=== PATIENT | female | born 2000 | race Caucasian/White ===

== ENCOUNTER 2023-07-13 18:42 | Emergency (ER) | payer OTHER ==
[2023-07-13 19:04] VITALS: BP 99/59; PULSE 65; RESP 16; TEMP 97.8; BMI 23.8
[2023-07-13] MEDS ORDERED: KETOROLAC TROMETHAMINE 15 MG/ML VIAL IM ONE (19:51)
[2023-07-13] MEDS ORDERED: KETOROLAC TROMETHAMINE 30 MG/1 ML VIAL ONE (20:03)
[2023-07-13 20:28] LABS: URINE APPEARANCE CLEAR; URINE BILIRUBIN NEGATIVE (NEGATIVE); URINE COLOR YELLOW; URINE GLUCOSE (UA) NEGATIVE (NEGATIVE); URINE KETONE NEGATIVE (NEGATIVE); URINE LEUK ESTERASE NEGATIVE (NEGATIVE); URINE NITRITE NEGATIVE (NEGATIVE); URINE PROTEIN NEGATIVE (NEGATIVE); URINE UROBILINOGEN 0.2 mg/dL (0.2-1.0)
[2023-07-13 20:30] LABS: HCG,QUALITATIVE URINE Negative
== END 2023-07-13 21:22 | disposition home or self-care (01) ==
LOC: JERFT 18:42 → JER 18:42 → JERFT 21:22
PROC: 3E0233Z Introduction of Anti-inflammatory into Muscle, Percutaneous Approach (ICD-10-PCS; principal; 2023-07-13)
DX: R51.9 Headache, unspecified (principal); H53.71 Glare sensitivity
CPT/HCPCS: 81003; 84703; 99284-25

== ENCOUNTER 2024-02-12 10:16 | Emergency (ER) | payer OTHER ==
[2024-02-12 10:22] VITALS: BP 99/58; PULSE 57; RESP 20; TEMP 98.3; BMI 29.2
[2024-02-12] MEDS ORDERED: ACETAMINOPHEN INJECTION 100 ML IVPB ONE (10:49)
[2024-02-12] MEDS ORDERED: METOCLOPRAMIDE HCL INJECTION 10 MG/2 ML VIAL ONE (10:49)
[2024-02-12] MEDS: ACETAMINOPHEN 1000 MG/100 ML BAG IVPB ONE (11:11)
[2024-02-12] MEDS: SODIUM CHLORIDE 0.9% 1000 ML INFUS.BAG IV ONE (11:11)
[2024-02-12] MEDS: METOCLOPRAMIDE HCL INJECTION 10 MG/2 ML VIAL IVPB ONE (11:11)
[2024-02-12] MEDS ORDERED: KETOROLAC TROMETHAMINE 15 MG/ML VIAL ONE ×2 (12:14→12:17)
[2024-02-12] MEDS: KETOROLAC TROMETHAMINE 30 MG/1 ML VIAL IVPUSH ONE (12:25)
== END 2024-02-12 13:01 | disposition home or self-care (01) ==
LOC: JER 10:16
PROC: 3E033NZ Introduction of Analgesics, Hypnotics, Sedatives into Peripheral Vein, Percutaneous Approach (ICD-10-PCS; principal; 2024-02-12)
PROC: 3E033GC Introduction of Other Therapeutic Substance into Peripheral Vein, Percutaneous Approach (ICD-10-PCS; 2024-02-12)
PROC: 3E033GC Introduction of Other Therapeutic Substance into Peripheral Vein, Percutaneous Approach (ICD-10-PCS; 2024-02-12)
PROC: 3E033GC Introduction of Other Therapeutic Substance into Peripheral Vein, Percutaneous Approach (ICD-10-PCS; 2024-02-12)
DX: R51.9 Headache, unspecified (principal)
CPT/HCPCS: 70450-TC; 96374; 96375; 99284-25; J0131